=== PATIENT | male | born 1970 | race Caucasian/White ===

== ENCOUNTER 2017-02-23 05:30 | Day surgery (SDC) | payer BC ==
[~2017-02-23] VITALS: Ht 175.3 cm; Wt 63.5 kg
[2017-02-23] MEDS ORDERED: CEFAZOLIN 2 GM IVPB PREMIX 50 ML IV ONE ×2 (06:21→07:00)
[2017-02-23] MEDS ORDERED: POLYMYXIN 500,000/BACIT.10,000 UNITS in NS IRR 1 L IR ONE (06:28)
[2017-02-23] MEDS ORDERED: BUPIVACAINE /EPINEPHRINE/PF 0.5% 30 ML VIAL INJ ONE (06:35)
[2017-02-23] MEDS ORDERED: MIDAZOLAM HCL 5 MG/5 ML VIAL IVP ONE (06:35)
[2017-02-23] MEDS ORDERED: PROPOFOL 200MG/ 20ML VIAL (DIPRIVAN) IV ONE (06:35)
[2017-02-23] MEDS ORDERED: ONDANSETRON HCL 4 MG/2 ML VIAL IVP ONE (06:35)
[2017-02-23] MEDS ORDERED: LIDOCAINE 2%, 20 ML MDV INJ ONE (06:35)
[2017-02-23] MEDS ORDERED: LR 1,000 ML IV.SOLN IV ONE (06:35)
[2017-02-23] MEDS ORDERED: SODIUM BICARBONATE 4% (NEUT) 5 ML VIAL INJ ONE (06:35)
[2017-02-23] MEDS ORDERED: LR 1,000 ML IV SCH (07:52)
[2017-02-23] MEDS ORDERED: HYDROmorphone 1 MG INJ. 1 MG/ML AMPUL IVP PRN (08:00)
[2017-02-23] MEDS ORDERED: MEPERIDINE HCL/PF 25 MG/ML DISP.SYRIN IVP PRN (08:00)
[2017-02-23] MEDS ORDERED: HYDROmorphone 2 MG/ML VIAL IVP PRN ×2 (08:00)
[2017-02-23] MEDS ORDERED: D5LR 1,000 ML IV SCH (08:12)
[2017-02-23] MEDS ORDERED: ACETAMINOPHEN 325 MG TABLET PO PRN (08:15)
[2017-02-23] MEDS ORDERED: DIPHENHYDRAMINE HCL 25 MG CAPSULE PO PRN (08:15)
[2017-02-23] MEDS ORDERED: HYDROcodone/ACETAMIN 5-325 MG TAB (NORCO/ VICODIN) PO PRN (08:15)
[2017-02-23] MEDS ORDERED: HYDROmorphone 2 MG/ML VIAL ONE (08:44)
[2017-02-23 09:57] VITALS: BP_SYST 98
== END 2017-02-23 09:40 | disposition home or self-care (01) ==
LOC: SMU 05:30 → SDS 05:30
PROVIDERS: ATTEND Orthopaedic Surgery
DX: T85.698A Other mechanical complication of other specified internal prosthetic devices, implants and grafts, initial encounter (principal); E78.5 Hyperlipidemia, unspecified; Z79.899 Other long term (current) drug therapy; N40.0 Benign prostatic hyperplasia without lower urinary tract symptoms; E03.9 Hypothyroidism, unspecified
CPT/HCPCS: 20680; 76000; J0690; J1170; J2001; J2250; J2405; J2704; J3490; J7120